=== PATIENT | female | born 1935 | race Caucasian/White ===

== ENCOUNTER 2016-07-23 11:06 | Emergency (ER) | payer MEDICARE, OTHER ==
[2016-07-23 11:17] VITALS: TEMP 97.3; BMI 21.0
[2016-07-23 11:38] LABS: MPV 6.1 fL (7.4-10.4)
[2016-07-23 11:53] LABS: CALC CORRECTED 10.8 MG/DL (8.4-10.2); CALCIUM 9.8 MG/DL (8.4-10.2); CHLORIDE 103 mEq/L (98-107); GLUCOSE 93 MG/DL (70-99); SODIUM LEVEL 134 mEq/L (137-146); TOTAL PROTEIN 7.4 G/DL (6.3-8.2)
[2016-07-23 11:55] LABS: PT-INR 1.1
[2016-07-23 12:01] LABS: BLOOD UREA NITROGEN 182 MG/DL (7-17); CALCULATED OSMOLALITY 319 MOs/Kg (270-290)
[2016-07-23 12:02] LABS: SEG NEUTROPHIL 97 % (45-76)
--- NOTE | 2016-07-23 12:42 | EDPRACDOC ---
- General Information Mode Of Arrival: Car - History of Present Illness Onset: 1 WEEK Exact Onset of Symptoms: Unknown HPI: PT PRESENTS TODAY WITH 1 WEEK OF FATIGUE/WEAKNESS AND INABILITY TO PERFORM ADL' S. 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 PT HAD TRIAL OF CELLCEPT, BUT STATES THAT SHE HAD SEVERE REACTION TO THIS MEDICATION ( SWELLING/TREMORS). PT HAS NOT HAD CELLCEPT IN MONTHS. STATES OVER THE PAST WEEK SHE HAS BEEN DECLINING IN GENERAL. NO SPECIFIC COMPLAINTS. DENIES BALDERAS, FEVER, CP, SHOB (NO WORSE THAN USUAL), ABD PAIN, N/V/D, DYSURIA. Symptoms Started: Reports: Gradually Symptoms Description: Worsening Weakness: Bilateral: Generalized Symptoms: Reports: Weak Symptom Severity: Reports: Unable to performs ADL's Associated signs and symptoms:: Reports: None <Kaci Navas - Last Filed: 07/23/16 13:21> <Jeffrey Johnson - Last Filed: 07/23/16 16:18> - General Information Chief Complaint: Generalized Weakness Stated Complaint: WEAKNESS Time Seen by Provider: 07/23/16 12:23 Allergies/Adverse Reactions: Allergies Allergy/AdvReac Type Severity Reaction Status Date / Time albuterol Allergy Angioedema* Verified 07/23/16 11:12 mycophenolate mofetil Allergy Angioedema* Verified 07/23/16 11:12 [From [facility]] ED Past Medical History - History Reviewed Yes Nurses notes reviewed and agree except as marked - Patient Medical History Systemic History: Denies: Cancer Surgical History: Reports: Appendectomy <Kaci Navas - Last Filed: 07/23/16 13:21> EDM Review of Systems - Review of Systems ROS Negative Except as Marked: Yes All systems reviewed and were negative except as marked Constitutional: Fatigue, Weakness, Weight loss Eyes: No Symptoms Reported Ears: No Symptoms Reported Throat: No Symptoms Reported Nose: No Symptoms Reported Respiratory: No Symptoms Reported Cardiovascular: No Symptoms Reported Gastrointestinal: No Symptoms Reported Genitourinary: No Symptoms Reported Neurological: Weakness Musculoskeletal: No Symptoms Reported Integumentary: No Symptoms Reported <Kaci Navas - Last Filed: 07/23/16 13:21> - Physical Exam Constitutional: Alert (Awake), No apparent distress Oriented to: Time, Person, Place Last recorded Vital Signs: Last Vital Signs Temp 97.3 F L 07/23/16 11:13 Pulse 92 07/23/16 11:13 Resp 20 07/23/16 11:13 BP 169/76 07/23/16 11:13 Pulse Ox 93 07/23/16 11:13 Oxygen Pulse Oxygen Saturation 93 O2 Device Room Air Oxygen Flow Rate Fraction of Inspired Oxygen ( FIO2) - HEENT Head: Normal Eye Exam: Normal Oropharynx: Normal Tympanic Membrane: Normal ENT EAC: Normal Nose: No Symptoms Reported Neck: Normal, Denies Pain, Midline - Respiratory/Cardiovascular Respiratory: Normal - CTA Cardiovascular: Tachycardia - GI Palpation: Normal Tenderness: Non tender - Musculoskeletal Back: Normal Extremities: Other (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;) - Integumentary Skin: Warm, Pale Lymphatics: Normal - Neurologic Mood Description: Normal Thought: Coherent Perception: Normal <Kaci Navas - Last Filed: 07/23/16 13:21> - Physical Exam Last recorded Vital Signs: Last Vital Signs Temp 97.3 F L 07/23/16 11:13 Pulse 103 07/23/16 13:49 Resp 18 07/23/16 13:49 BP 149/65 07/23/16 13:49 Pulse Ox 100 07/23/16 13:49 Oxygen Pulse Oxygen Saturation 100 O2 Device Room Air Oxygen Flow Rate Fraction of Inspired Oxygen ( FIO2) <Jeffrey Johnson - Last Filed: 07/23/16 16:18> - Results 07/23/16 11:15 07/23/16 11:15 WBC 25.3 xk/uL (3.8-10.8) H 07/23/16 11:15 RBC 3.11 xM/uL (4.20-5.40) L 07/23/16 11:15 Hgb 7.0 g/dL (12.0-16.0) L 07/23/16 11:15 Hct 22.8 % (36-47) L 07/23/16 11:15 MCV 73 fL (81-99) L 07/23/16 11:15 MCH 22.6 pg (27-32) L 07/23/16 11:15 MCHC 30.8 g/dl (33-36) L 07/23/16 11:15 RDW 20.3 % (11.5-14.5) H 07/23/16 11:15 Plt Count 684 xk/uL (130-400) H 07/23/16 11:15 MPV 6.1 fL (7.4-10.4) L 07/23/16 11:15 Neut % (Auto) Cancelled 07/23/16 11:15 Lymph % (Auto) Cancelled 07/23/16 11:15 Blount % (Auto) Cancelled 07/23/16 11:15 Eos % (Auto) Cancelled 07/23/16 11:15 Baso % (Auto) Cancelled 07/23/16 11:15 Absolute Neuts (auto) Cancelled 07/23/16 11:15 Absolute Lymphs (auto) Cancelled 07/23/16 11:15 Seg Neuts % (Manual) 97 % (45-76) H 07/23/16 11:15 Band Neutrophils % 1 % (0-5) 07/23/16 11:15 Lymphocytes % (Manual) 2 % (17-44) L 07/23/16 11:15 Absolute Neutrophils 24.79 xk/uL (1.7-8.2) H 07/23/16 11:15 Absolute Lymphocytes 0.51 xk/uL (0.65-4.75) L 07/23/16 11:15 Platelet Estimate Inc (NORMAL) 07/23/16 11:15 RBC Morphology 1+ hypo 1+ micro 2+ aniso 1+ polychrom 07/23/16 11:15 RBC Morphology 1+ hypo 1+ micro 2+ aniso 1+ polychrom 07/23/16 11:15 RBC Morphology 1+ hypo 1+ micro 2+ aniso 1+ polychrom 07/23/16 11:15 RBC Morphology 1+ hypo 1+ micro 2+ aniso 1+ polychrom 07/23/16 11:15 PT 11.5 SEC (9.2-11.2) H 07/23/16 11:15 INR 1.1 07/23/16 11:15 APTT 29.0 SEC (22-35) 07/23/16 11:15 Sodium 134 mEq/L (137-146) L 07/23/16 11:15 Potassium 7.2 mEq/L (3.5-5.1) H* 07/23/16 11:15 Chloride 103 mEq/L (98-107) 07/23/16 11:15 Carbon Dioxide 11 mMOL/L (22-33) L 07/23/16 11:15 Anion Gap 27 mEq/L (8-16) H 07/23/16 11:15 BUN 182 MG/DL (7-17) H 07/23/16 11:15 Creatinine 11.10 MG/DL (0.52-1.04) H 07/23/16 11:15 Estimated GFR (MDRD) 3 mL/min (>=60) L 07/23/16 11:15 Glucose 93 MG/DL (70-99) 07/23/16 11:15 Calculated Osmolality 319 MOs/Kg (270-290) H 07/23/16 11:15 Calcium 9.8 MG/DL (8.4-10.2) 07/23/16 11:15 Corrected Calcium 10.8 MG/DL (8.4-10.2) H 07/23/16 11:15 Total Bilirubin 0.5 MG/DL (0.2-1.3) 07/23/16 11:15 AST 28 IU/L (14-36) 07/23/16 11:15 ALT 43 IU/L (9-52) 07/23/16 11:15 Alkaline Phosphatase 186 IU/L (55-165) H 07/23/16 11:15 Troponin I 0.16 ng/mL (<.04) 07/23/16 11:15 Total Protein 7.4 G/DL (6.3-8.2) 07/23/16 11:15 Albumin 3.0 G/DL (3.5-5.0) L 07/23/16 11:15 Lab Results 07/23/16 07/23/16 07/23/16 11:15 11:15 11:15 WBC 25.3 H RBC 3.11 L Hgb 7.0 L Hct 22.8 L MCV 73 L MCH 22.6 L MCHC 30.8 L RDW 20.3 H Plt Count 684 H MPV 6.1 L Neut % (Auto) Cancelled Lymph % (Auto) Cancelled Blount % (Auto) Cancelled Eos % (Auto) Cancelled Baso % (Auto) Cancelled Absolute Neuts (auto) Cancelled Absolute Lymphs (auto) Cancelled Seg Neuts % (Manual) 97 H Band Neutrophils % 1 Lymphocytes % (Manual) 2 L Absolute Neutrophils 24.79 H Absolute Lymphocytes 0.51 L Platelet Estimate Inc RBC Morphology 1+ polychrom PT 11.5 H INR 1.1 APTT 29.0 Sodium 134 L Potassium 7.2 H* Chloride 103 Carbon Dioxide 11 L Anion Gap 27 H BUN 182 H Creatinine 11.10 H Estimated GFR (MDRD) 3 L Glucose 93 Calculated Osmolality 319 H Calcium 9.8 Corrected Calcium 10.8 H Total Bilirubin 0.5 AST 28 ALT 43 Alkaline Phosphatase 186 H Troponin I 0.16 Total Protein 7.4 Albumin 3.0 L - EKG EKG #1 EKG Time: 13:04 -: Yes EKG interpreted by me Rate: bpm: 90 Marissa: LAD Rhythm: NSR, PACs Block: None Hypertrophy: None ST: Normal - Additional Information CASE DISCUSSED WITH DR. JOHNSON; PT IN SEVERE RENAL FAILURE, LIKELY PRE-RENAL WITH NOTED BUN. PT HAS NO PMH OF RENAL DISEASE. DR. JOHNSON IS CURRENTLY DISCUSSING TRANSFER WITH PT AND FAMILY. <Kaci Navas - Last Filed: 07/23/16 13:21> - Re-evaluation Re-evaluation 1 Re-evaluation Time: 14:49 THERE ARE NO ICU/STEPDOWN BEDS AVAILABLE AT [facility], OR [facility]. WILL ATTEMPT [facility] TRANSFER DESTINATION. [facility] IS ON [facility] AND NOT ACCEPTING TRANSFERS. Re-evaluation 2 Re-evaluation Time: 15:43 PT ACCEPTED FOR TRANSFER TO [facility]. DR. EVANS IS ACCEPTING. - Results 07/23/16 11:15 07/23/16 11:15 WBC 25.3 xk/uL (3.8-10.8) H 07/23/16 11:15 RBC 3.11 xM/uL (4.20-5.40) L 07/23/16 11:15 Hgb 7.0 g/dL (12.0-16.0) L 07/23/16 11:15 Hct 22.8 % (36-47) L 07/23/16 11:15 MCV 73 fL (81-99) L 07/23/16 11:15 MCH 22.6 pg (27-32) L 07/23/16 11:15 MCHC 30.8 g/dl (33-36) L 07/23/16 11:15 RDW 20.3 % (11.5-14.5) H 07/23/16 11:15 Plt Count 684 xk/uL (130-400) H 07/23/16 11:15 MPV 6.1 fL (7.4-10.4) L 07/23/16 11:15 Neut % (Auto) Cancelled 07/23/16 11:15 Lymph % (Auto) Cancelled 07/23/16 11:15 Blount % (Auto) Cancelled 07/23/16 11:15 Eos % (Auto) Cancelled 07/23/16 11:15 Baso % (Auto) Cancelled 07/23/16 11:15 Absolute Neuts (auto) Cancelled 07/23/16 11:15 Absolute Lymphs (auto) Cancelled 07/23/16 11:15 Seg Neuts % (Manual) 97 % (45-76) H 07/23/16 11:15 Band Neutrophils % 1 % (0-5) 07/23/16 11:15 Lymphocytes % (Manual) 2 % (17-44) L 07/23/16 11:15 Absolute Neutrophils 24.79 xk/uL (1.7-8.2) H 07/23/16 11:15 Absolute Lymphocytes 0.51 xk/uL (0.65-4.75) L 07/23/16 11:15 Platelet Estimate Inc (NORMAL) 07/23/16 11:15 RBC Morphology 1+ hypo 1+ micro 2+ aniso 1+ polychrom 07/23/16 11:15 RBC Morphology 1+ hypo 1+ micro 2+ aniso 1+ polychrom 07/23/16 11:15 RBC Morphology 1+ hypo 1+ micro 2+ aniso 1+ polychrom 07/23/16 11:15 RBC Morphology 1+ hypo 1+ micro 2+ aniso 1+ polychrom 07/23/16 11:15 PT 11.5 SEC (9.2-11.2) H 07/23/16 11:15 INR 1.1 07/23/16 11:15 APTT 29.0 SEC (22-35) 07/23/16 11:15 Sodium 134 mEq/L (137-146) L 07/23/16 11:15 Potassium 7.2 mEq/L (3.5-5.1) H* 07/23/16 11:15 Chloride 103 mEq/L (98-107) 07/23/16 11:15 Carbon Dioxide 11 mMOL/L (22-33) L 07/23/16 11:15 Anion Gap 27 mEq/L (8-16) H 07/23/16 11:15 BUN 182 MG/DL (7-17) H 07/23/16 11:15 Creatinine 11.10 MG/DL (0.52-1.04) H 07/23/16 11:15 Estimated GFR (MDRD) 3 mL/min (>=60) L 07/23/16 11:15 Glucose 93 MG/DL (70-99) 07/23/16 11:15 Calculated Osmolality 319 MOs/Kg (270-290) H 07/23/16 11:15 Calcium 9.8 MG/DL (8.4-10.2) 07/23/16 11:15 Corrected Calcium 10.8 MG/DL (8.4-10.2) H 07/23/16 11:15 Total Bilirubin 0.5 MG/DL (0.2-1.3) 07/23/16 11:15 AST 28 IU/L (14-36) 07/23/16 11:15 ALT 43 IU/L (9-52) 07/23/16 11:15 Alkaline Phosphatase 186 IU/L (55-165) H 07/23/16 11:15 Troponin I 0.16 ng/mL (<.04) 07/23/16 11:15 Total Protein 7.4 G/DL (6.3-8.2) 07/23/16 11:15 Albumin 3.0 G/DL (3.5-5.0) L 07/23/16 11:15 Urine Color Yellow 07/23/16 13:08 Urine Clarity Cldy 07/23/16 13:08 Urine pH 5.0 (5.0-8.0) 07/23/16 13:08 Ur Specific [place] 1.005 (1.003-1.035) 07/23/16 13:08 Urine Protein 1+ (NEG/TRACE) H 07/23/16 13:08 Urine Glucose (UA) Trace (NEGATIVE) 07/23/16 13:08 Urine Ketones Neg (NEGATIVE) 07/23/16 13:08 Urine Occult Blood 2+ (NEG/TRACE) H 07/23/16 13:08 Urine Nitrite Neg (NEGATIVE) 07/23/16 13:08 Urine Bilirubin Neg (NEGATIVE) 07/23/16 13:08 Urine Urobilinogen <2.0 MG/DL (0-1) 07/23/16 13:08 Ur Leukocyte Esterase 2+ (NEGATIVE) H 07/23/16 13:08 Urine RBC 20-30 (0-5) H 07/23/16 13:08 Urine WBC Tntc (0-5) H 07/23/16 13:08 Ur Epithelial Cells 2+ 07/23/16 13:08 Urine Bacteria 4+ (NEG/FEW) H 07/23/16 13:08 Blood Type O POSITIVE 07/23/16 11:15 Antibody Screen Positive 07/23/16 11:15 Lab Results 07/23/16 07/23/16 07/23/16 13:08 11:15 11:15 WBC RBC Hgb Hct MCV MCH MCHC RDW Plt Count MPV Neut % (Auto) Lymph % (Auto) Blount % (Auto) Eos % (Auto) Baso % (Auto) Absolute Neuts (auto) Absolute Lymphs (auto) Seg Neuts % (Manual) Band Neutrophils % Lymphocytes % (Manual) Absolute Neutrophils Absolute Lymphocytes Platelet Estimate RBC Morphology PT 11.5 H INR 1.1 APTT 29.0 Sodium Potassium Chloride Carbon Dioxide Anion Gap BUN Creatinine Estimated GFR (MDRD) Glucose Calculated Osmolality Calcium Corrected Calcium Total Bilirubin AST ALT Alkaline Phosphatase Troponin I Total Protein Albumin Urine Color Yellow Urine Clarity Cldy Urine pH 5.0 Ur Specific [place] 1.005 Urine Protein 1+ H Urine Glucose (UA) Trace Urine Ketones Neg Urine Occult Blood 2+ H Urine Nitrite Neg Urine Bilirubin Neg Urine Urobilinogen <2.0 Ur Leukocyte Esterase 2+ H Urine RBC 20-30 H Urine WBC Tntc H Ur Epithelial Cells 2+ Urine Bacteria 4+ H Blood Type O POSITIVE Antibody Screen Positive 07/23/16 07/23/16 11:15 11:15 WBC 25.3 H RBC 3.11 L Hgb 7.0 L Hct 22.8 L MCV 73 L MCH 22.6 L MCHC 30.8 L RDW 20.3 H Plt Count 684 H MPV 6.1 L Neut % (Auto) Cancelled Lymph % (Auto) Cancelled Blount % (Auto) Cancelled Eos % (Auto) Cancelled Baso % (Auto) Cancelled Absolute Neuts (auto) Cancelled Absolute Lymphs (auto) Cancelled Seg Neuts % (Manual) 97 H Band Neutrophils % 1 Lymphocytes % (Manual) 2 L Absolute Neutrophils 24.79 H Absolute Lymphocytes 0.51 L Platelet Estimate Inc RBC Morphology 1+ polychrom PT INR APTT Sodium 134 L Potassium 7.2 H* Chloride 103 Carbon Dioxide 11 L Anion Gap 27 H BUN 182 H Creatinine 11.10 H Estimated GFR (MDRD) 3 L Glucose 93 Calculated Osmolality 319 H Calcium 9.8 Corrected Calcium 10.8 H Total Bilirubin 0.5 AST 28 ALT 43 Alkaline Phosphatase 186 H Troponin I 0.16 Total Protein 7.4 Albumin 3.0 L Urine Color Urine Clarity Urine pH Ur Specific [place] Urine Protein Urine Glucose (UA) Urine Ketones Urine Occult Blood Urine Nitrite Urine Bilirubin Urine Urobilinogen Ur Leukocyte Esterase Urine RBC Urine WBC Ur Epithelial Cells Urine Bacteria Blood Type Antibody Screen <Jeffrey Johnson - Last Filed: 07/23/16 16:18> ED Critical Care Note - Critical Care Note Total Time (mins): 100 Comments: Due to the presence of and / or the risk of deterioration, my attendance to this patient required critical care time, including assessment/reassessment, documentation, ordering and interpreting ancillary studies, discussion with ED staff and consultants,patient and family, and excludes time spent on separately billable procedures. <Jeffrey Johnson - Last Filed: 07/23/16 16:18> - Departure Disposition: Trans. to Other Hospital Education/Counseling Given To: Patient, Family Member Education/Counseling Given Regarding: Diagnosis, Treatment, Follow Up Decision to Transfer Time: 12:47 <Kaci Navas - Last Filed: 07/23/16 13:21> <Jeffrey Johnson - Last Filed: 07/23/16 16:18> - Departure Condition: Fair Final Diagnosis: Hyperkalemia, PRABHAKAR ZONE TROPONIN, Uremia Leukocytosis Qualifiers: Leukocytosis type: unspecified Qualified Code(s): D72.829 - Elevated white blood cell count, unspecified Acute renal failure Qualifiers: Acute renal failure type: unspecified Qualified Code(s): N17.9 - Acute kidney failure, unspecified Instructions: Weakness (General), Renal Failure Diet (GEN) Referrals: Shakir Churchill Jr, DO [Primary Care Provider] - One Week
[2016-07-23] MEDS ORDERED: REGULAR INSULIN 100 UNITS/ML - 3 ML VIAL IV ONE (12:46)
[2016-07-23] MEDS ORDERED: DEXTROSE 25 GM/50 ML PFS IV ONE (12:46)
[2016-07-23] MEDS ORDERED: SODIUM POLYSTYRENE SULFONATE 15 GM BOTTLE PO ONE (12:46)
[2016-07-23] MEDS ORDERED: CALCIUM GLUCONATE 4.65 MEQ in NS 100 ML IV ONE (12:47)
[2016-07-23] MEDS: NS 1,000 ML IV SCH ×2 (12:52→13:46)
[2016-07-23 13:18] LABS: LEUKOCYTES/URINE 2+ (NEGATIVE); NITRITE/URINE NEG (NEGATIVE); RBC/URINE 20-30 (0-5); URINE OCCULT BLOOD 2+ (NEG/TRACE); WBC/URINE TNTC (0-5)
[2016-07-23] MEDS ORDERED: CEFTRIAXONE 1 GM in D5W 100 ML IV ONE (13:25)
[2016-07-23 18:23] VITALS: BP 164/72; PULSE 84
== END 2016-07-23 19:00 | disposition short-term general hospital (02) ==
LOC: ED 11:06 → EDMC 19:00
DX: E87.5 Hyperkalemia (principal); D72.829 Elevated white blood cell count, unspecified; N17.9 Acute kidney failure, unspecified
CPT/HCPCS: 36415; 80053; 81001; 84484; 85007; 85027; 85610; 85730; 86850; 86870; 86900; 86901; 87077; 87086; 87186; 93005; 96361; 96365; 96366; 96375; 99285; A9270; J0610; J0696; J7030; J7060; J3490